=== PATIENT | female | born 1970 | race Caucasian/White ===

== ENCOUNTER 2018-08-03 11:58 | Emergency (ER) | payer OTHER ==
[~2018-08-03] VITALS: Ht 172.7 cm; Wt 127.9 kg
--- NOTE | 2018-08-03 12:18 | PHYS DOC ---
Past History Past Medical History: High Cholesterol, Hypertension, Hypothyroid, Migraines Past Surgical History: Tubal ligation Smoking: Non-smoker, Quit Greater Than 1 Year Alcohol Use: Rarely Drug Use: None Adult General Chief Complaint Chief Complaint: LOWER EXT PAIN HPI HPI Patient is a 47-year-old female presents with bilateral lower extremity swelling, right greater than left, that is been present long-term but worse over the past 3-4 days. Patient is currently on thiazide, 25 mg daily which is not improving her symptoms. Reports that both legs feel tight. Denies any chest pain or palpitations. Reports occasional shortness of breath with exertion but this is nothing new for her. Denies any fever. Denies any DVT or PE risk factors. Patient called her primary care physician today who directed her to the [facility] department for evaluation and treatment of this. Symptoms are moderate in intensity. Patient denies any recent increase in salt intake.[] Review of Systems Review of Systems Constitutional: Denies fever or chills [] Eyes: Denies change in visual acuity, redness, or eye pain [] HENT: Denies nasal congestion or sore throat [] Respiratory: Denies cough or shortness of breath [] Cardiovascular: No chest pain or palpitations[] GI: Denies abdominal pain, nausea, vomiting, bloody stools or diarrhea [] : Denies dysuria or hematuria [] Musculoskeletal: Denies back pain, see history of present illness[] Integument: Denies rash or skin lesions [] Neurologic: Denies headache, focal weakness or sensory changes [] Endocrine: Denies polyuria or polydipsia [] All other systems were reviewed and found to be within normal limits, except as documented in this note. Allergies Allergies Allergies Coded Allergies Type Severity Reaction Last Updated Verified adhesive tape Allergy Unknown 08/03/18 Yes erythromycin base Allergy Unknown 08/03/18 Yes latex Allergy Unknown 08/03/18 Yes nebivolol Allergy Unknown 08/03/18 Yes Physical Exam Physical Exam Constitutional: Well developed, well nourished, no acute distress, non-toxic appearance. [] HENT: Normocephalic, atraumatic, bilateral external ears normal, oropharynx moist, no oral exudates, nose normal. [] Eyes: PERRLA, EOMI, conjunctiva normal, no discharge. [] Neck: Normal range of motion, no tenderness, supple, no stridor. No JVD noted [] Cardiovascular:Heart rate regular rhythm, no murmur [] Lungs & Thorax: Bilateral breath sounds clear to auscultation [] Abdomen: Bowel sounds normal, soft, no tenderness, no masses, no pulsatile masses. [] Skin: Warm, dry, no erythema, no rash. [] Back: No tenderness, no CVA tenderness. [] Extremities: No tenderness, no cyanosis, no clubbing, ROM intact, 2+ pretibial edema bilateral lower extremities. [] Neurologic: Alert and oriented X 3, normal motor function, normal sensory function, no focal deficits noted. [] Psychologic: Affect normal, judgement normal, mood normal. [] EKG EKG EKG shows a sinus rhythm at 60 bpm, no ST elevations. Normal axis. QTC of 426 ms. No old EKG available for comparison. Interpreted by me at 1245.[] Radiology/Procedures Radiology/Procedures PROCEDURE: CHEST PA & LATERAL Chest, PA and Lateral: Technique: PA and lateral views of the chest were obtained. History: Swelling. Comparison: None. Findings: Mild cardiomegaly. There is mild prominent appearing bilateral interstitial lung markings likely congestive changes. IMPRESSION: Mild prominent bilateral interstitial lung markings likely mild congestive changes. [] Course & Med Decision Making Course & Med Decision Making Pertinent Labs and Imaging studies reviewed. (See chart for details) Medical decision making: There is no evidence of hypoxia, no evidence of end organ dysfunction, her blood pressure improved to 139/87 without any intervention. She has peripheral edema and mild congestive changes noted on the chest x-ray. Will start her on Lasix and have her follow-up with her primary care team for long-term management. There is no evidence of a DVT. No evidence of an acute coronary syndrome. ED course: Patient arrived, was placed in bed, and tolerated exam well. She was transported to and from x-ray without any complications. After the return of laboratory studies, these were discussed with the patient and family who voiced understanding. All questions were answered. Patient was given initial dose of Lasix in the emergency department. Patient was discharged in improved condition.[] Dragon Disclaimer Dragon Disclaimer This electronic medical record was generated, in whole or in part, using a voice recognition dictation system. Departure Departure: Impression: Primary Impression: Peripheral edema Additional Impression: Congestive heart failure Disposition: HOME, SELF-CARE Condition: IMPROVED Referrals: AMRIT WING MD (PCP) Follow-up in 2 days Patient Instructions: Heart Failure, Peripheral Edema Additional Instructions: Stop your thiazide. Take the new medicine as prescribed. Avoid excess salt in your diet. Follow-up with your doctor in 2 days. Return to the ER if worsening difficulty breathing, worsening leg swelling, or any other concerns. Scripts Potassium Chloride (KLOR-CON M20) 20 Meq Tab.er.prt 1 TAB PO DAILY for Lasix, #30 TAB 0 Refills Prov: VAISHNAVI HUNTER DO 08/03/18 Furosemide (LASIX) 20 Mg Tablet 1 TAB PO DAILY for peripheral edema, #30 TAB 0 Refills Prov: VAISHNAVI HUNTER DO 08/03/18 Problem Qualifiers Additional Impression: Congestive heart failure Heart failure type: unspecified Heart failure chronicity: unspecified Qualified Codes: I50.9 - Heart failure, unspecified VAISHNAVI HUNTER DO August 03, 2018 12:18
[2018-08-03 12:41] LABS: BASO # 0.1 x10^3/uL (0.0-0.2); BASO % 1 % (0-3); EOS # 0.1 x10^3/uL (0.0-0.7); EOS % 2 % (0-3); HEMATOCRIT 46.9 % (36.0-47.0); HEMOGLOBIN 15.9 g/dL (12.0-15.5); LYMPH # 1.9 x10^3/uL (1.0-4.8); LYMPH % 23 % (24-48); MEAN CORPUSCULAR HEMOGLOBIN 32 pg (25-35); MEAN CORPUSCULAR HGB CONC 34 g/dL (31-37); MEAN CORPUSCULAR VOLUME 95 fL (79-100); MONO # 0.5 x10^3/uL (0.0-1.1); MONO % 6 % (0-9); NEUT # 5.6 x10^3uL (1.8-7.7); NEUT % 69 % (31-73); PLATELET COUNT 196 x10^3/uL (140-400); RED BLOOD COUNT 4.91 x10^6/uL (3.50-5.40); RED CELL DISTRIBUTION WIDTH 13.8 % (11.5-14.5); WHITE BLOOD COUNT 8.2 x10^3/uL (4.0-11.0)
--- NOTE | 2018-08-03 12:42 | RAD ---
Chest, PA and Lateral: Technique: PA and lateral views of the chest were obtained. History: Swelling. Comparison: None. Findings: Mild cardiomegaly. There is mild prominent appearing bilateral interstitial lung markings likely congestive changes. IMPRESSION: Mild prominent bilateral interstitial lung markings likely mild congestive changes. Electronically signed by: Juan Antonio Carvajal MD (08/03/2018 12:39 PM) [place] [id number]
[2018-08-03 12:45] LABS: PREG TEST PT QUAL NEGATIVE (NEG)
[2018-08-03 12:51] LABS: BILIRUBIN,URINE NEG (NEG); CLARITY,URINE CLEAR; COLOR,URINE YELLOW; GLUCOSE,URINE NEG (NEG); UROBILINOGEN,URINE 0.2 mg/dL (0.2 mg/dL)
[2018-08-03 12:52] LABS: BACTERIA,URINE 0 /HPF (0-FEW); NITRITE,URINE NEG (NEG); RBC,URINE 0 /HPF (0-2); SQUAMOUS EPITHELIAL CELL,UR MOD /LPF; WBC,URINE 0 /HPF (0-4)
[2018-08-03 12:58] LABS: ALBUMIN 3.6 g/dL (3.4-5.0); ALBUMIN/GLOBULIN RATIO 0.9 (1.0-1.7); CALCIUM 8.6 mg/dL (8.5-10.1); CREATININE 0.8 mg/dL (0.6-1.0); GFR 76.6; MAGNESIUM 2.2 mg/dL (1.8-2.4); POTASSIUM 3.5 mmol/L (3.5-5.1); TOTAL BILIRUBIN 0.5 mg/dL (0.2-1.0); TOTAL PROTEIN 7.5 g/dL (6.4-8.2)
[2018-08-03] MEDS ORDERED: FURO-69 PO (13:07)
[2018-08-03] MEDS ORDERED: POTA20TA4 PO (13:07)
--- NOTE | 2018-08-03 13:07 | EKG ---
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
[2018-08-03 13:10] VITALS: BP 140/82
[2018-08-03] MEDS: FUROSEMIDE 40 MG/4 ML VIAL IVP ONE (13:10)
== END 2018-08-03 13:19 | disposition home or self-care (01) ==
LOC: ER 11:58
DX: R60.0 Localized edema (principal); I11.0 Hypertensive heart disease with heart failure; I50.9 Heart failure, unspecified; E78.00 Pure hypercholesterolemia, unspecified; E03.9 Hypothyroidism, unspecified; G43.909 Migraine, unspecified, not intractable, without status migrainosus; Z87.891 Personal history of nicotine dependence; Z88.8 Allergy status to other drugs, medicaments and biological substances; Z88.1 Allergy status to other antibiotic agents; Z91.040 Latex allergy status
CPT/HCPCS: 36415; 71046; 80053; 81001; 83735; 83880; 84443; 84484; 84703; 85025; 85379; 85610; 93005; 96374; 99285; J1940